=== PATIENT | male | born 1990 | race Caucasian/White ===

== ENCOUNTER 2018-11-18 11:53 | Day surgery (SDC) | payer OTHER ==
[~2018-11-18] VITALS: Ht 177.8 cm; Wt 102.1 kg
[~2018-11-18 11:53] MED LIST: LIDOCAINE 2% INJ 100 MG/5 ML SDV (FOR ANES.) As Ordered ONE; NS 1,000 ML IV ONE; OMEP20TA PO; PROPOFOL 200 MG/20 ML VIAL As Ordered ONE
[2018-11-18] MEDS ORDERED: PROPOFOL 200 MG/20 ML VIAL As Ordered ONE (13:37)
--- NOTE | 2018-11-18 13:40 | ROOR ---
Patient Name: Francis Guzman Procedure Date: 11/18/2018 1:19 PM Date of : 1990 Age: 27 Room: [facility] Gender: Male Note Status: Finalized Procedure: Upper GI endoscopy Indications: Dysphagia, Heartburn, History of peptic ulcer disease, History of esophageal food impaction Providers: Julian MATUTE MD Referring MD: ISAURO CALDWELL MD Requesting Provider: Medicines: Monitored Anesthesia Care Complications: No immediate complications. Procedure: Pre-Anesthesia Assessment: - The heart rate, respiratory rate, oxygen saturations, blood pressure, adequacy of pulmonary ventilation, and response to care were monitored throughout the procedure. The Endoscope was introduced through the mouth, and advanced to the second part of duodenum. The upper GI endoscopy was accomplished without difficulty. The patient tolerated the procedure well. Findings: Moderately severe esophagitis was found in the lower third of the esophagus. Biopsies were taken with a cold forceps for histology. Mucosal changes including ringed esophagus and longitudinal furrows were found in the proximal esophagus. Biopsies were taken with a cold forceps for histology. The entire examined stomach was normal. Biopsies were taken with a cold forceps for Helicobacter pylori testing. The examined duodenum was normal. Impression: - Moderately severe reflux esophagitis. Biopsied. - Esophageal mucosal changes suggestive of eosinophilic esophagitis. Biopsied. - Normal stomach. Biopsied. - Normal examined duodenum. Recommendation: - Use Prilosec (omeprazole) 20 mg PO BID. - (the script was sent to your pharmacy on file) - Telephone endoscopist for pathology results in 2 weeks. Julian Matute MD Julian MATUTE MD 11/18/2018 1:40:21 PM This report has been signed electronically. Number of Addenda: 0 Note Initiated On: 11/18/2018 1:19 PM Estimated Blood Loss: Estimated blood loss: none.
--- NOTE | 2018-11-18 13:53 | ROOR ---
Patient Name: Francis Guzman Procedure Date: 11/18/2018 1:20 PM Date of : 1990 Age: 27 Room: [facility] Gender: Male Note Status: Finalized Procedure: Colonoscopy Indications: Generalized abdominal pain, Hematochezia, Change in bowel habits Providers: Julian MATUTE MD Referring MD: ISAURO CALDWELL MD Requesting Provider: Medicines: Monitored Anesthesia Care Complications: No immediate complications. Procedure: Pre-Anesthesia Assessment: - The heart rate, respiratory rate, oxygen saturations, blood pressure, adequacy of pulmonary ventilation, and response to care were monitored throughout the procedure. The Colonoscope was introduced through the anus and advanced to 15 cm into the ileum. The colonoscopy was performed without difficulty. The patient tolerated the procedure well. The quality of the bowel preparation was good. Findings: The perianal and digital rectal examinations were normal. The terminal ileum appeared normal. Retroflexion in the right colon was performed. The entire examined colon appeared normal on direct and retroflexion views. Impression: - Small internal hemorrhoids. - The terminal ileum is normal. - The entire colon is normal on direct and retroflexion views.. - No specimens collected. Recommendation: - Use fiber, for example Citrucel, Fibercon, Konsyl or Metamucil. Julian Matute MD Julian MATUTE MD 11/18/2018 1:53:29 PM This report has been signed electronically. Number of Addenda: 0 Note Initiated On: 11/18/2018 1:20 PM Estimated Blood Loss: Estimated blood loss: none.
[2018-11-18 14:15] VITALS: BP 162/93
== END 2018-11-18 14:38 | disposition home or self-care (01) ==
LOC: M OPP 11:53
PROVIDERS: ATTEND Internal Medicine Gastroenterology
DX: K64.8 Other hemorrhoids (principal); K21.0 Gastro-esophageal reflux disease with esophagitis; K22.8 Other specified diseases of esophagus; R13.10 Dysphagia, unspecified; R12 Heartburn; R19.4 Change in bowel habit; K92.1 Melena

== ENCOUNTER → 2019-06-22 23:05 | Emergency (ER) | payer OTHER ==
[~2019-06-22] VITALS: Ht 177.8 cm; Wt 95.5 kg
[~2019-06-22 23:05] MED LIST changes: +BENA25CA4 PO; +EPIN0.3I11 SQ; -LIDOCAINE 2% INJ 100 MG/5 ML SDV (FOR ANES.) As Ordered ONE; -NS 1,000 ML IV ONE; +PRED20TA PO; -PROPOFOL 200 MG/20 ML VIAL As Ordered ONE
[2019-06-23 00:42] VITALS: BP 136/72
== END | disposition home or self-care (01) ==
LOC: M ED 23:05
DX: T18.128A Food in esophagus causing other injury, initial encounter (principal); Y92.9 Unspecified place or not applicable; Y93.9 Activity, unspecified; Z91.030 Bee allergy status

== ENCOUNTER 2019-07-07 16:57 | Emergency (ER) | payer OTHER ==
[~2019-07-07] VITALS: Ht 177.8 cm; Wt 94.5 kg
[~2019-07-07 16:57] MED LIST changes: -BENA25CA4 PO; -EPIN0.3I11 SQ; -PRED20TA PO
[2019-07-07] MEDS ORDERED: EPIN0.3I11 SQ (17:07)
[2019-07-07] MEDS ORDERED: dexameTHASONE 20 MG/5 ML VIAL (J1100) IV ONE (18:00)
[2019-07-07 18:45] VITALS: BP 129/74
[2019-07-07] MEDS ORDERED: BENA25CA4 PO (18:47)
[2019-07-07] MEDS ORDERED: PRED20TA PO (18:47)
== END 2019-07-07 19:21 | disposition home or self-care (01) ==
LOC: M ED 16:57
DX: T63.461A Toxic effect of venom of wasps, accidental (unintentional), initial encounter (principal); X58.XXXA Exposure to other specified factors, initial encounter; Y92.89 Other specified places as the place of occurrence of the external cause; Z91.030 Bee allergy status
CPT/HCPCS: 93041; 94760; 96374; 99285; J1100

== ENCOUNTER 2019-10-13 11:59 | Day surgery (SDC) | payer OTHER ==
[~2019-10-13] VITALS: Ht 177.8 cm; Wt 99.8 kg
[~2019-10-13 11:59] MED LIST changes: +BENA25CA4 PO; +EPIN0.3I11 SQ; +OMEP-358 PO; -OMEP20TA PO; +PRED20TA PO
[2019-10-13] MEDS ORDERED: PROPOFOL 200 MG/20 ML VIAL As Ordered ONE (13:51)
[2019-10-13] MEDS ORDERED: LIDOCAINE 2% INJ 100 MG/5 ML SDV (FOR ANES.) As Ordered ONE (13:51)
--- NOTE | 2019-10-13 13:56 | ROOR ---
Patient Name: Francis Guzman Procedure Date: 10/13/2019 1:38 PM Date of : 1990 Age: 28 Room: [facility] Gender: Male Note Status: Finalized Procedure: Upper GI endoscopy Indications: Dysphagia, Heartburn, Follow-up of eosinophilic esophagitis Providers: Julian MATUTE MD Referring MD: MANDI RAYMOND MD Requesting Provider: Medicines: Monitored Anesthesia Care Complications: No immediate complications. Procedure: Pre-Anesthesia Assessment: - The heart rate, respiratory rate, oxygen saturations, blood pressure, adequacy of pulmonary ventilation, and response to care were monitored throughout the procedure. The Endoscope was introduced through the mouth, and advanced to the second part of duodenum. The upper GI endoscopy was accomplished without difficulty. The patient tolerated the procedure well. Findings: Mucosal changes including longitudinal furrows, small-caliber esophagus and circumferential folds were found in the entire esophagus. Biopsies were taken with a cold forceps for histology. Moderately severe esophagitis was found in the lower third of the esophagus. Biopsies were taken with a cold forceps for histology. The entire examined stomach was normal. The examined duodenum was normal. Impression: - Eosinophilic esophagitis. Biopsied. - Moderate reflux esophagitis. Biopsied. - Normal stomach. - Normal examined duodenum. Recommendation: - Allergy to Omeprazole noted. Use second line meds-Use Famotidine 20 mg twice a day. - Use Flovent swallow 2 fuffs twice a day as directed. Julian Matute MD Julian MATUTE MD 10/13/2019 1:55:49 PM Electronically signed by Julian MATUTE MD Number of Addenda: 0 Note Initiated On: 10/13/2019 1:38 PM Estimated Blood Loss: Estimated blood loss: none.
[2019-10-13] MEDS ORDERED: NS 1,000 ML IV ONE (14:00)
[2019-10-13 14:15] VITALS: BP 157/85
== END 2019-10-13 14:35 | disposition home or self-care (01) ==
LOC: M OPP 11:59
PROVIDERS: ATTEND Internal Medicine Gastroenterology
DX: K22.8 Other specified diseases of esophagus (principal); K21.0 Gastro-esophageal reflux disease with esophagitis; R13.10 Dysphagia, unspecified; R12 Heartburn; K20.0 Eosinophilic esophagitis; Z88.0 Allergy status to penicillin; Z79.899 Other long term (current) drug therapy; Z91.030 Bee allergy status

== ENCOUNTER 2020-04-16 18:17 | Day surgery (SDC) | payer OTHER ==
[~2020-04-16] VITALS: Ht 177.8 cm; Wt 106.2 kg
[2020-04-16 19:06] LABS: BASO # 0.1 10^3/uL (0.0-0.2); BASO % 0.7 % (0.0-1.0); EOS # 0.6 10^3/uL (0.0-0.5); EOS % 6.8 % (0.0-3.0); HEMATOCRIT 45.3 % (42.0-52.0); HEMOGLOBIN 16.3 g/dl (13.5-17.5); LYMPH # 2.1 10^3/uL (1.5-5.0); LYMPH % 25.9 % (24.0-44.0); MEAN CORPUSCULAR HEMOGLOBIN 29.7 pg (27.0-33.0); MEAN CORPUSCULAR VOLUME 82.7 fl (80.0-96.0); MONO # 0.6 10^3/uL (0.0-0.8); MONO % 7.7 % (0.0-5.0); NEUTROPHILS # 4.7 10^3/uL (1.5-8.5); NEUTROPHILS % 57.4 % (36.0-66.0); PLATELET COUNT, AUTOMATED 269 10^3/uL (150-450); RED BLOOD COUNT 5.48 10^6/uL (4.30-6.10); WHITE BLOOD COUNT 8.1 10^3/uL (4.0-10.0)
[2020-04-16] MEDS ORDERED: GLUCAGON INJ 1MG VIAL IV STA ×2 (19:09→19:59)
[2020-04-16] MEDS ORDERED: NITROGLYCERIN 0.3 MG SUBL TAB SL STA (19:10)
[2020-04-16 19:19] VITALS: BP 189/75
[2020-04-16 19:36] LABS: BLOOD UREA NITROGEN 12 MG/DL (7-18); CALCIUM LEVEL 8.4 MG/DL (8.5-10.1); CARBON DIOXIDE LEVEL 26 MEQ/L (21-32); CHLORIDE LEVEL 107 MEQ/L (98-107); CREATININE FOR GFR 0.89 MG/DL (0.70-1.30); GLOMERULAR FILTRATION RATE > 60.0 (>60); GLUCOSE, FASTING 88 MG/DL (70-100); POTASSIUM SERUM 3.9 MEQ/L (3.5-5.1); SODIUM LEVEL 139 MEQ/L (136-145)
[2020-04-16] MEDS ORDERED: NITROGLYCERIN 0.4 MG SUBL TABLET SL STA (20:00)
[2020-04-16] MEDS ORDERED: SUCCINYLCHOLINE 100 MG/5 ML SYRINGE (J0330) As Ordered ONE (21:57)
[2020-04-16] MEDS ORDERED: ONDANSETRON 4MG/2ML VIAL As Ordered ONE (21:57)
[2020-04-16] MEDS ORDERED: MIDAZOLAM INJ 2MG/2ML VIAL (J2250 PER 1MG) As Ordered ONE (21:57)
[2020-04-16] MEDS ORDERED: dexameTHASONE 4 MG/ML 1ML VIAL (J1100 PER 1MG) As Ordered ONE (21:57)
[2020-04-16] MEDS ORDERED: propofoL 200 MG/20 ML VIAL As Ordered ONE (21:57)
[2020-04-16] MEDS ORDERED: fentaNYL 100 MCG/2 ML INJECTION (J3010) As Ordered ONE (21:57)
[2020-04-16] MEDS ORDERED: LIDOCAINE 2% 100MG/5ML SDV (FOR ANES.) As Ordered ONE (21:57)
[2020-04-16] MEDS ORDERED: ROCURONIUM BROMIDE 50 MG/5 ML VIAL As Ordered ONE (22:02)
--- NOTE | 2020-04-16 22:35 | ROOR ---
Patient Name: Francis Guzman Procedure Date: 04/16/2020 9:38 PM Date of : 1990 Age: 29 Gender: Male Note Status: Finalized Procedure: Upper GI endoscopy Indications: Foreign body in the esophagus, Eosinophilic esophagitis Providers: Julian MATUTE MD Referring MD: 3. Emergency Dept 3. Emergency Dept, MANDI RAYMOND MD Requesting Provider: Medicines: General Anesthesia Complications: No immediate complications. Procedure: Pre-Anesthesia Assessment: - The heart rate, respiratory rate, oxygen saturations, blood pressure, adequacy of pulmonary ventilation, and response to care were monitored throughout the procedure. The Endoscope was introduced through the mouth, and advanced to the second part of duodenum. The upper GI endoscopy was accomplished without difficulty. The patient tolerated the procedure well. Findings: Food was found in the middle third of the esophagus. Removal was accomplished with a Hooper net. Moderately severe esophagitis was found in the lower third of the esophagus. Biopsies were taken with a cold forceps for histology. Mucosal changes including ringed esophagus, small-caliber esophagus with distal taper, circumferential folds and longitudinal markings were found in the entire esophagus. Biopsies were taken with a cold forceps for histology. The entire examined stomach was normal. Diffuse mucosal flattening was found in the first portion of the duodenum. This was biopsied with a cold forceps for evaluation of celiac disease. Impression: - Food was found in the esophagus. Removal was successful. - Moderately severe esophagitis. Biopsied. - Esophageal mucosal changes secondary to eosinophilic esophagitis. Biopsied. - Normal stomach. - Flattened mucosa was found in the duodenum. Biopsied. Recommendation: - (the script was sent to your pharmacy on file) - Flovent 2 puffs to back of mouth. dry swallow twice a day. No food/drink for 20 minutes after. - Possible Omeprazole allergy noted (Hives). Use Pepcid 20 mg twice a day - According to your allergy testing in 2019. Avoid Shellfish, Avoid milk products - Return to my office in 1 month. Julian Matute MD Julian MATUTE MD 04/16/2020 10:34:36 PM Electronically signed by Julian MATUTE MD Number of Addenda: 0 Note Initiated On: 04/16/2020 9:38 PM Estimated Blood Loss: Estimated blood loss: none.
[2020-04-16 22:58] VITALS: BP 146/60
[2020-04-16] MEDS ORDERED: ONDANSETRON 4MG/2ML VIAL IV PRN (23:00)
[2020-04-16] MEDS ORDERED: LR 1,000 ML IV SCH (23:00)
== END 2020-04-16 23:47 | disposition home or self-care (01) ==
LOC: M ED 18:17 → M SDC 21:22 → M ED 21:28 → M SDC 23:47
PROVIDERS: ATTEND Internal Medicine Gastroenterology
DX: T18.128A Food in esophagus causing other injury, initial encounter (principal); K20.0 Eosinophilic esophagitis; Z79.899 Other long term (current) drug therapy; Z88.0 Allergy status to penicillin; Z91.030 Bee allergy status
CPT/HCPCS: 43239; 43247; 80048; 85025; 87486; 87581; 87633; 87798; 88305; 96374; 96376; 99284; J0330; J1100; J1610; J2250; J2405; J3010